=== PATIENT | male | born 2000 | race Two or more races ===

== ENCOUNTER 2019-01-10 15:18 | Emergency (ER) | payer OTHER ==
[2019-01-10 15:33] VITALS: BP 139/92
--- NOTE | 2019-01-10 15:59 | ER Document Report ---
HPI - HPI Time Seen by Provider: 01/10/19 15:40 Pain Level: 1 Notes: Patient is an otherwise healthy 18-year-old male presenting to the emergency department chief complaint of insect bite to his right forearm. He states this occurred approximately 1.5 hours ago. He does not know what bit him. He reports he was playing ball and went into some brush to grab the ball. He states that after he was bitten by the insect he felt a strange feeling in his lower lip that felt like numbness and felt some strange feelings in his right leg. He reports all symptoms have resolved at the time of arrival. Patient has no known allergies. Patient denies any rash, difficulty breathing, shortness of breath or difficulty swallowing. - CONSTITUTIONAL Constitutional: DENIES: Fever, Chills Past Medical History - General Information source: Patient - Social History Smoking Status: Never Smoker Frequency of alcohol use: None Drug Abuse: None Family History: Reviewed & Not Pertinent Patient has suicidal ideation: No Patient has homicidal ideation: No - Medical History Medical History: Negative Renal/ Medical History: Denies: Hx Peritoneal Dialysis Surgical Hx: Negative - Immunizations Immunizations up to date: Yes Vertical Provider Document - CONSTITUTIONAL Notes: PHYSICAL EXAMINATION: GENERAL: Well-appearing, well-nourished and in no acute distress. HEAD: Atraumatic, normocephalic. EYES: Pupils equal round extraocular movements intact, conjunctiva are normal. ENT: Nares patent NECK: Normal range of motion LUNGS: No respiratory distress Musculoskeletal: Normal range of motion NEUROLOGICAL: Normal speech, normal gait. PSYCH: Normal mood, normal affect. SKIN: Warm, Dry, normal turgor, no rashes. 1 cm area of erythema noted to right forearm consistent with possible insect bite. Course - Re-evaluation Re-evalutation: Patient does have a very small 1 cm area of erythema consistent with insect bite to his right forearm. He has no evidence of allergic reaction. He is speaking in full and complete sentences, swallowing without difficulty and he has no rash. Patient is very concerned because he had a transient period of time where he felt numbness and tingling to his lip and his right leg, patient will be instructed to take [id number] Pepcid and Benadryl for his symptoms. The patient's emergency department workup and current diagnosis were explained to the patient and or family. Follow-up instructions were provided. Medications if prescribed were discussed. Instructions for when to return to the emergency department including specific worrisome symptoms were discussed with the patient and/or family. - Vital Signs Vital signs: Temp Pulse Resp BP Pulse Ox 98.4 F 61 16 139/92 H 99 01/10/19 15:32 01/10/19 15:32 01/10/19 15:32 01/10/19 15:32 01/10/19 15:32 Discharge - Discharge Clinical Impression: Insect bite Qualifiers: Encounter type: initial encounter Site of insect bite: unspecified site Q ualified Code(s): W57.XXXA - Bitten or stung by nonvenomous insect and other nonvenomous arthropods, initial encounter Condition: Stable Disposition: HOME, SELF-CARE Additional Instructions: Please take Pepcid 20 mg twice daily and Benadryl 25 to 50 mg every 4-6 hours. If your symptoms worsen or you develop difficulty swallowing or difficulty breathing please return to the emergency department.
== END 2019-01-10 16:00 | disposition home or self-care (01) ==
LOC: ER 15:18
DX: S50.861A Insect bite (nonvenomous) of right forearm, initial encounter (principal); W57.XXXA Bitten or stung by nonvenomous insect and other nonvenomous arthropods, initial encounter
CPT/HCPCS: 99281